=== PATIENT | male | born 1985 | race Caucasian/White ===

== ENCOUNTER 2017-05-20 18:54 | Emergency (ER) | payer OTHER ==
[~2017-05-20] VITALS: Ht 175.2 cm; Wt 86.2 kg
[~2017-05-20 18:54] MED LIST: ALEVE220 MG PO; ALLEGRA180 MG PO; BACTRIM DS 8001 TA1 PO; BENTYL10 MG PO; CEPHALEXIN500 M1 PO; CORTISPORIN 1%-10 M1 OT; DOXYCYCLINE HY100 M3 PO; DOXYCYCLINE MO100 MG PO; FLEXERIL10 MG PO; HYDROCODONE BIT1 T11 PO; MEDROL DOSEPAK4 MG PO; MOTRIN800 MG PO; NKHM PO; NORCO 325 MG-51 TAB PO; PHENERGAN W/DM120 ML PO; PROTONIX40 MG PO; SEPTRA DS 800 M1 TAB PO; TRAMADOL HCL50 MG PO; ULTRAM50 MG PO; ZITHROMAX250 MG PO
[2017-05-20] MEDS ORDERED: AUGMENTIN 875875 MG PO (19:23)
== END 2017-05-20 19:33 | disposition home or self-care (01) ==
LOC: ED 18:54
DX: J02.9 Acute pharyngitis, unspecified (principal); F17.200 Nicotine dependence, unspecified, uncomplicated; Z90.49 Acquired absence of other specified parts of digestive tract

== ENCOUNTER 2018-02-24 10:39 | Emergency (ER) | payer OTHER ==
[~2018-02-24] VITALS: Ht 175.2 cm; Wt 86.2 kg
[~2018-02-24 10:39] MED LIST changes: +AUGMENTIN 875875 MG PO
[2018-02-24] MEDS ORDERED: PREDNISONE10 MG PO (10:48)
[2018-02-24] MEDS ORDERED: CHLORZOXAZONE500 M2 PO (10:48)
== END 2018-02-24 12:29 | disposition home or self-care (01) ==
LOC: ED 10:39
DX: M54.5 Low back pain (principal); R03.0 Elevated blood-pressure reading, without diagnosis of hypertension; G89.29 Other chronic pain; Z79.899 Other long term (current) drug therapy; Z90.49 Acquired absence of other specified parts of digestive tract

== ENCOUNTER → 2018-05-05 | Outpatient (CLI) | payer OTHER ==
[~2018-05-05] MED LIST changes: +CHLORZOXAZONE500 M2 PO; +PREDNISONE10 MG PO
== END | disposition home or self-care (01) ==
LOC: MRI 10:48
DX: R60.0 Localized edema (principal); S96.211A Strain of intrinsic muscle and tendon at ankle and foot level, right foot, initial encounter; X58.XXXA Exposure to other specified factors, initial encounter; Y93.89 Activity, other specified; Y92.89 Other specified places as the place of occurrence of the external cause; Y99.8 Other external cause status

== ENCOUNTER 2019-09-15 08:29 | Emergency (ER) | payer OTHER ==
[~2019-09-15] VITALS: Ht 175.2 cm; Wt 90.7 kg
[2019-09-15] MEDS ORDERED: VIBRAMYCIN100 MG PO (09:05)
[2019-09-15] MEDS ORDERED: Motrin,Rufen800 MG PO (09:15)
== END 2019-09-15 09:08 | disposition home or self-care (01) ==
LOC: ED 08:29
PROVIDERS: Emergency Medicine
DX: S90.551A Superficial foreign body, right ankle, initial encounter (principal); L02.31 Cutaneous abscess of buttock; Z79.2 Long term (current) use of antibiotics; Z79.899 Other long term (current) drug therapy; Z90.49 Acquired absence of other specified parts of digestive tract; Z98.890 Other specified postprocedural states; X58.XXXA Exposure to other specified factors, initial encounter; Y93.89 Activity, other specified; Y92.89 Other specified places as the place of occurrence of the external cause; Y99.8 Other external cause status

== ENCOUNTER 2020-05-19 13:34 | Emergency (ER) | payer OTHER ==
[~2020-05-19] VITALS: Ht 177.8 cm; Wt 90.7 kg
[~2020-05-19 13:34] MED LIST changes: +Motrin,Rufen800 MG PO; +VIBRAMYCIN100 MG PO
[2020-05-19 16:43] LABS: BASO % 0.5 % (0.0-1.0); EOS # 0.4 10*3/uL (0.0-0.4); EOS % 5.7 % (1.0-4.0); HEMATOCRIT 53.1 % (42.0-52.0); LYMPH # 1.6 10*3/uL (1.3-4.4); LYMPH % 25.5 % (27.0-41.0); MEAN CELL VOLUME 95.2 fl (80.0-94.0); MEAN CORPUSCULAR HGB 31.5 pg (27.0-31.0); MEAN CORPUSCULAR HGB CONC 33.1 g/dl (33.0-37.0); MEAN PLATELET VOLUME 10.2 fl (9.6-12.3); MONO # 0.5 10*3/uL (0.1-1.0); MONO % 7.1 % (3.0-9.0); NEUT # 3.9 10*3/uL (2.3-7.9); NEUT % 60.9 % (47.0-73.0); PLATELET COUNT AUTOMATED 180 10*3/uL (130-400); RED BLOOD COUNT 5.58 10*6/uL (4.50-5.90); RED CELL DISTRI WIDTH 12.4 % (0-14.5); WHITE BLOOD COUNT 6.3 10*3/uL (4.8-10.8)
[2020-05-19 17:02] LABS: ALBUMIN 4.3 gm/dl (3.1-4.5); ALKALINE PHOSPHATASE 99 U/L (45-117); BUN 9 mg/dl (7-24); CHLORIDE 106 mmol/L (98-107); CREATININE 0.98 mg/dL (0.70-1.30); POTASSIUM 4.7 mmol/L (3.5-5.1); SGOT/AST 27 IU/L (3-35); SGPT/ALT 37 U/L (12-78); SODIUM 141 mmol/L (136-145); TOTAL PROTEIN 7.8 gm/dL (6.4-8.2)
== END 2020-05-19 18:08 | disposition home or self-care (01) ==
LOC: ED 13:34
PROVIDERS: Physician Assistant
DX: S09.90XA Unspecified injury of head, initial encounter (principal); F17.200 Nicotine dependence, unspecified, uncomplicated; Z79.2 Long term (current) use of antibiotics; Z79.899 Other long term (current) drug therapy; Z90.89 Acquired absence of other organs; Z90.49 Acquired absence of other specified parts of digestive tract; X58.XXXA Exposure to other specified factors, initial encounter; Y93.89 Activity, other specified; Y92.89 Other specified places as the place of occurrence of the external cause; Y99.8 Other external cause status

== ENCOUNTER 2021-02-01 09:03 | Emergency (ER) | payer OTHER ==
[~2021-02-01] VITALS: Ht 175.2 cm; Wt 80.7 kg
[2021-02-01] MEDS ORDERED: CILOXAN 5 ML5 ML OPH (09:47)
== END 2021-02-01 09:54 | disposition home or self-care (01) ==
LOC: ED 09:03
DX: S05.02XA Injury of conjunctiva and corneal abrasion without foreign body, left eye, initial encounter (principal); F17.200 Nicotine dependence, unspecified, uncomplicated; W22.8XXA Striking against or struck by other objects, initial encounter; Y93.89 Activity, other specified; Y92.89 Other specified places as the place of occurrence of the external cause; Y99.8 Other external cause status

== ENCOUNTER 2021-09-23 12:08 | Emergency (ER) | payer OTHER ==
[~2021-09-23] VITALS: Wt 83.5 kg
[~2021-09-23 12:08] MED LIST changes: +CILOXAN 5 ML5 ML OPH
== END 2021-09-23 14:49 | disposition left against medical advice (07) ==
LOC: ED 12:08
DX: R42 Dizziness and giddiness (principal); Z53.21 Procedure and treatment not carried out due to patient leaving prior to being seen by health care provider

== ENCOUNTER 2021-12-16 21:46 | Emergency (ER) | payer OTHER ==
[~2021-12-16] VITALS: Ht 175.2 cm; Wt 83.9 kg
[2021-12-16] MEDS ORDERED: LIPITOR40 MG PO (21:53)
[2021-12-16] MEDS ORDERED: DRIZALMA SPRINK60 MG PO (21:53)
[2021-12-16] MEDS ORDERED: MELOXICAM10 MG PO (21:53)
[2021-12-16 22:22] LABS: BASO % 0.2 % (0.0-1.0); EOS # 0.4 10*3/uL (0.0-0.4); EOS % 6.7 % (1.0-4.0); HEMATOCRIT 46.6 % (42.0-52.0); LYMPH # 1.8 10*3/uL (1.3-4.4); LYMPH % 30.7 % (27.0-41.0); MEAN CELL VOLUME 92.1 fl (80.0-94.0); MEAN CORPUSCULAR HGB 31.2 pg (27.0-31.0); MEAN CORPUSCULAR HGB CONC 33.9 g/dl (33.0-37.0); MONO # 0.5 10*3/uL (0.1-1.0); MONO % 8.1 % (3.0-9.0); NEUT # 3.2 10*3/uL (2.3-7.9); NEUT % 54.1 % (47.0-73.0); PLATELET COUNT AUTOMATED 176 10*3/uL (130-400); RED BLOOD COUNT 5.06 10*6/uL (4.50-5.90); RED CELL DISTRI WIDTH 12.5 % (0-14.5); WHITE BLOOD COUNT 5.8 10*3/uL (4.8-10.8)
[2021-12-16 22:38] LABS: ALKALINE PHOSPHATASE 76 U/L (45-117); BUN 12 mg/dl (7-24); CHLORIDE 109 mmol/L (98-107); CREATININE 0.95 mg/dL (0.70-1.30); LIPASE 684 U/L (73-393); POTASSIUM 4.1 mmol/L (3.5-5.1); SGOT/AST 16 IU/L (3-35); SGPT/ALT 26 U/L (12-78); SODIUM 141 mmol/L (136-145); TOTAL PROTEIN 6.6 gm/dL (6.4-8.2)
[2021-12-17] MEDS ORDERED: PROTONIX40 MG PO (01:50)
== END 2021-12-17 01:51 | disposition home or self-care (01) ==
LOC: ED 21:46
PROVIDERS: Physician Assistant
DX: R10.13 Epigastric pain (principal); Z20.822 Contact with and (suspected) exposure to COVID-19; F12.10 Cannabis abuse, uncomplicated; Z98.890 Other specified postprocedural states; Z79.899 Other long term (current) drug therapy

== ENCOUNTER 2022-02-21 21:39 | Emergency (ER) | payer OTHER ==
[~2022-02-21] VITALS: Ht 175.2 cm; Wt 83.9 kg
[~2022-02-21 21:39] MED LIST changes: +DRIZALMA SPRINK60 MG PO; +LIPITOR40 MG PO; +MELOXICAM10 MG PO
[2022-02-21 23:27] LABS: BASO % 0.1 % (0.0-1.0); EOS # 0.2 10*3/uL (0.0-0.4); EOS % 3.2 % (1.0-4.0); HEMATOCRIT 43.1 % (42.0-52.0); LYMPH # 1.3 10*3/uL (1.3-4.4); LYMPH % 18.5 % (27.0-41.0); MEAN CELL VOLUME 92.5 fl (80.0-94.0); MEAN CORPUSCULAR HGB 31.8 pg (27.0-31.0); MEAN CORPUSCULAR HGB CONC 34.3 g/dl (33.0-37.0); MEAN PLATELET VOLUME 10.1 fl (9.6-12.3); MONO # 0.4 10*3/uL (0.1-1.0); MONO % 5.5 % (3.0-9.0); NEUT % 72.3 % (47.0-73.0); PLATELET COUNT AUTOMATED 157 10*3/uL (130-400); RED BLOOD COUNT 4.66 10*6/uL (4.50-5.90); RED CELL DISTRI WIDTH 12.4 % (0-14.5); WHITE BLOOD COUNT 6.9 10*3/uL (4.8-10.8)
[2022-02-21 23:46] LABS: BILIRUBIN Negative (Negative); BLOOD Negative (Negative); CLARITY Clear (Clear); COLOR Yellow (Yellow); GLUCOSE Negative (Negative); KETONE Trace (Negative); LEUKO ESTERASE Negative (Negative); NITRITE Negative (Negative); SPECIFIC GRAVITY 1.015 (1.001-1.030); UROBILINOGEN 0.2 E.U./dl (0.0-1.0)
[2022-02-21 23:46] LABS: ALKALINE PHOSPHATASE 66 U/L (45-117); BUN 15 mg/dl (7-24); CHLORIDE 107 mmol/L (98-107); CREATININE 0.95 mg/dL (0.70-1.30); POTASSIUM 4.2 mmol/L (3.5-5.1); SGOT/AST 12 IU/L (3-35); SGPT/ALT 20 U/L (12-78); SODIUM 140 mmol/L (136-145); TOTAL PROTEIN 6.6 gm/dL (6.4-8.2)
[2022-02-21 23:55] LABS: URINE AMPHETAMINES < 1000 (1000ng/ml); URINE BARBITURATES < 200 (200ng/ml); URINE BENZODIAZEPINES < 200 (200ng/ml); URINE CANNABINOIDS (THC) > 50 (50ng/ml); URINE COCAINE < 300 (300ng/ml); URINE METHADONE < 300 (300ng/ml); URINE OPIATES < 300 (300ng/ml)
[2022-02-21 23:57] LABS: URINE PHENCYCLIDINE < 25 (25ng/ml)
[2022-02-21 23:58] LABS: MUCOUS 1+; RBC 0-2 rbc/hpf (0-2); WBC 0-2 wbc/hpf (0-5)
== END 2022-02-22 04:20 | disposition home or self-care (01) ==
LOC: ED 21:39
PROVIDERS: Emergency Medicine
DX: R07.9 Chest pain, unspecified (principal); E78.00 Pure hypercholesterolemia, unspecified; Z79.899 Other long term (current) drug therapy; Z90.49 Acquired absence of other specified parts of digestive tract; Z90.89 Acquired absence of other organs; F17.200 Nicotine dependence, unspecified, uncomplicated; Z98.890 Other specified postprocedural states

== ENCOUNTER 2022-04-04 09:33 | Emergency (ER) | payer OTHER ==
[~2022-04-04] VITALS: Ht 175.2 cm
[2022-04-04] MEDS ORDERED: AMOX-CLAV 875-1 EACH PO (10:01)
== END 2022-04-04 10:04 | disposition home or self-care (01) ==
LOC: ED 09:33
DX: H66.92 Otitis media, unspecified, left ear (principal); Z79.899 Other long term (current) drug therapy; Z98.890 Other specified postprocedural states; F17.200 Nicotine dependence, unspecified, uncomplicated; Z90.89 Acquired absence of other organs; Z90.49 Acquired absence of other specified parts of digestive tract

== ENCOUNTER 2023-05-27 10:45 | Emergency (ER) | payer OTHER ==
[~2023-05-27] VITALS: Ht 175.2 cm; Wt 82.6 kg
[~2023-05-27 10:45] MED LIST changes: +AMOX-CLAV 875-1 EACH PO; +CIPRO500 MG PO; +FLOMAX0.4 MG PO; +PERCOCET 5-3251 EACH PO
[2023-05-27] MEDS ORDERED: MELOXICAM15 MG PO (12:58)
[2023-05-27] MEDS ORDERED: CIPRO500 MG PO (12:58)
[2023-05-27 13:06] LABS: BILIRUBIN Negative (Negative); BLOOD 3+ (Negative); CLARITY Clear (Clear); COLOR Yellow (Yellow); GLUCOSE Negative (Negative); KETONE Negative (Negative); LEUKO ESTERASE Negative (Negative); NITRITE Negative (Negative); SPECIFIC GRAVITY 1.015 (1.001-1.030); UROBILINOGEN 0.2 E.U./dl (0.0-1.0)
[2023-05-27 13:23] LABS: RBC TNTC rbc/hpf (0-2)
[2023-05-27 13:24] LABS: BACTERIA 2+
== END 2023-05-27 13:13 | disposition home or self-care (01) ==
LOC: ED 10:45
PROVIDERS: Emergency Medicine
DX: I86.1 Scrotal varices (principal); N39.0 Urinary tract infection, site not specified; N50.811 Right testicular pain; F17.200 Nicotine dependence, unspecified, uncomplicated; Z79.899 Other long term (current) drug therapy; Z79.2 Long term (current) use of antibiotics; Z98.890 Other specified postprocedural states; Z90.49 Acquired absence of other specified parts of digestive tract; Z90.89 Acquired absence of other organs

== ENCOUNTER → 2023-06-14 | Outpatient (CLI) | payer OTHER ==
[~2023-06-14] MED LIST changes: +MELOXICAM15 MG PO
== END | disposition home or self-care (01) ==
LOC: CT 15:23
PROVIDERS: ATTEND Family Medicine
DX: N20.0 Calculus of kidney (principal); N50.82 Scrotal pain; N28.89 Other specified disorders of kidney and ureter

== ENCOUNTER → 2023-07-06 | Outpatient (CLI) | payer OTHER | END | disposition home or self-care (01) | LOC: US 13:31 | PROVIDERS: ATTEND Nurse Practitioner Adult Health | DX: R10.9 Unspecified abdominal pain (principal); R31.0 Gross hematuria ==

== ENCOUNTER → 2023-07-29 | Outpatient (CLI) | payer OTHER ==
[~2023-07-29] MED LIST changes: +IOHEXOL 350 MG/ML 100 ML VIAL IV ONE
== END | disposition home or self-care (01) ==
LOC: CT 14:18
PROVIDERS: ATTEND Urology
DX: N20.0 Calculus of kidney (principal); R31.9 Hematuria, unspecified; K76.0 Fatty (change of) liver, not elsewhere classified; N28.1 Cyst of kidney, acquired